=== PATIENT | female | born 2000 | race Caucasian/White ===

== ENCOUNTER 2020-04-30 19:09 | Observation (INO) ==
[2020-04-30] MEDS ORDERED: Ondansetron 4 MG/2 ML VIAL IVP ONE (19:28)
[2020-04-30] MEDS ORDERED: Morphine Sulfate 2 MG/ML SYRINGE IVP ONE (19:28)
[2020-04-30] MEDS ORDERED: 0.9 % Sodium Chloride 1,000 ML IVC ONE (19:28)
[2020-04-30] MEDS ORDERED: Isovue-370 500 ML BOTTLE IVP ONE (19:29)
[2020-04-30 19:38] LABS: Basophils % 0.2 %; Eosinophils % 0.3 %; Hematocrit 42.1 % (35.3-44.9); Hemoglobin 13.8 g/dL (11.5-15.4); Immature Granulocytes % 0.3 % (0-4); Lymphocytes # 0.7 K/mcL (0.6-4.6); Lymphocytes % 5.6 %; Mean Corpuscular HGB Conc 32.8 g/dL (31.6-35.5); Mean Corpuscular Hemoglobin 28.6 pg (28.0-33.3); Mean Corpuscular Volume 87.2 fL (83.0-100.0); Mean Platelet Volume 10.7 fL (9.4-12.4); Monocytes # 0.8 K/mcL (0.0-1.3); Monocytes % 5.8 %; Neutrophils # 11.7 K/mcL (1.6-8.9); Platelet Count 170 K/mcL (140-400); Red Blood Count 4.83 M/mcL (3.82-4.97); Red Cell Distribution Width 12.3 % (11.5-14.5); Segmented Neutrophils % 87.8 %; White Blood Count 13.3 K/mcL (4.3-11.1)
[2020-04-30 20:02] LABS: Alanine Aminotransferase 13 Units/L (7-52); Albumin 4.5 g/dL (3.5-5.7); Albumin/Globulin Ratio 1.5 (1.1-2.2); Alkaline Phosphatase 47 Units/L (34-104); Aspartate Amino Transferase 14 Units/L (13-39); BUN/Creatinine Ratio 17 (6-26); Bilirubin,Direct 0.1 mg/dL (0.0-0.2); Bilirubin,Indirect 0.4 mg/dL (0.0-1.0); Bilirubin,Total 0.5 mg/dL (0.3-1.0); Blood Urea Nitrogen 14 mg/dL (6-20); Calcium 9.4 mg/dL (8.6-10.3); Carbon Dioxide 23 mEq/L (23-29); Chloride 104 mEq/L (98-107); Globulin 3.1 g/dL (2.4-3.5); Glucose 113 mg/dL (70-105); Lipase 11 Units/L (11-82); Osmolality,Calculated 283 (280-300); Potassium 3.9 mEq/L (3.5-5.1); Sodium 136 mEq/L (136-145); Total Protein 7.6 g/dL (6.4-8.9); eGFR For African Americans > 60; eGFR For Non-African Americans > 60
[2020-04-30 20:15] LABS: Bacteria,Urine Few per hpf (None-Few); Bilirubin,Urine Negative (Negative); Blood,Urine Negative (Negative); Clarity,Urine Clear (Clear); Color,Urine Light-Yellow (Yellow); Glucose,Urine (UA) Normal (Normal); Ketones,Urine 10 mg/dL (Negative); Leukocyte Esterase,Urine Small (Negative); Mucus,Urine Few per lpf (None-Few); Nitrite,Urine Negative (Negative); Protein,Urine Trace mg/dL (Neg-Trace); RBC,Urine 0-3 per hpf (0-3); Specific Gravity,Urine 1.025 (1.010-1.025); Squamous Epithelial Cell,Urine Moderate per hpf (None-Few); Urobilinogen,Urine Normal (Normal)
[2020-04-30] MEDS ORDERED: Piperacillin/Tazobactam 3.375 GM in 0.9 % Sodium Chloride Mini Bag 100 ML IVPB ONE (20:57)
[2020-04-30] MEDS ORDERED: Ondansetron 4 MG/2 ML VIAL IVP PRN (23:07)
[2020-04-30] MEDS ORDERED: 0.9 % Sodium Chloride 1,000 ML IVC SCH (23:15)
[2020-05-01] MEDS ORDERED: Piperacillin/Tazobactam 3.375 GM in 0.9 % Sodium Chloride Mini Bag 100 ML IVPB SCH ×2 (04:00→13:00)
[2020-05-01] MEDS ORDERED: Lidocaine -MPF 4% 5 ML AMPUL ONE (09:36)
[2020-05-01] MEDS ORDERED: *HR* FentaNYL (PF) 100 MCG/2 ML VIAL ONE (09:41)
[2020-05-01] MEDS ORDERED: *HR* Midazolam HCl 2 MG/2 ML VIAL ONE (09:41)
[2020-05-01] MEDS ORDERED: *HR* HYDROMORPHONE 2 MG/ML VIAL ONE (09:41)
[2020-05-01] MEDS ORDERED: *HR* Propofol 200 MG/20 ML VIAL IVP ONE (09:41)
[2020-05-01] MEDS ORDERED: Ondansetron 4 MG/2 ML VIAL ONE (09:42)
[2020-05-01] MEDS ORDERED: *HR* Succinylcholine 200 MG/10 ML VIAL IVP ONE (09:42)
[2020-05-01] MEDS ORDERED: *HR* Rocuronium Bromide 50 MG/5 ML VIAL ONE (09:42)
[2020-05-01] MEDS ORDERED: Dexamethasone 4 MG/ML VIAL ONE (09:42)
[2020-05-01] MEDS ORDERED: Ketorolac 30 MG/ML VIAL ONE (09:42)
[2020-05-01] MEDS ORDERED: Lidocaine -MPF 2% 2 ML VIAL ONE (09:42)
[2020-05-01] MEDS ORDERED: Sugammadex Sodium 200 MG/2 ML VIAL IV ONE ×2 (09:42→11:48)
[2020-05-01] MEDS ORDERED: *HR* Magnesium Sulfate 1 GM/2 ML VIAL ONE (09:51)
[2020-05-01] MEDS ORDERED: Acetaminophen IV 1,000 MG/100 ML INFUS..BTL ONE (09:55)
[2020-05-01] MEDS ORDERED: Famotidine 20 MG/2 ML VIAL ONE (09:55)
[2020-05-01] MEDS ORDERED: *HR* HYDROmorphone PF 0.5 MG/0.5 ML SYRINGE IVP PRN (10:10)
[2020-05-01] MEDS ORDERED: Ondansetron 4 MG/2 ML VIAL IVP PRN ×2 (10:10→12:41)
[2020-05-01] MEDS ORDERED: *HR* OxyCODONE Immed Rel 5 MG TABLET PO PRN (10:10)
[2020-05-01] MEDS ORDERED: *HR* OxyCODONE/APAP 5/325 TABLET PO PRN (12:41)
[2020-05-01] MEDS: Ketorolac 15 MG/ML VIAL IVP SCH ×2 (13:31→18:36)
[2020-05-01 15:43] VITALS: BP 106/68
== END 2020-05-01 21:30 | disposition home or self-care (01) ==
LOC: 3ANU 19:09 → EMEROOARM 19:09 → 3ANU 22:37
PROVIDERS: ADMIT Surgery; ATTEND Surgery